=== PATIENT | male | born 1985 | race African-American/Black ===

== ENCOUNTER 2017-02-26 12:12 | Emergency (ER) | payer SELFPAY ==
[~2017-02-26] VITALS: Ht 162.6 cm; Wt 71.2 kg
[2017-02-26 12:20] VITALS: BP 146/92
--- NOTE | 2017-02-26 12:24 | PHYS DOC ---
Past Medical History Past Medical History: No Pertinent History Past Surgical History: No Surgical History Alcohol Use: None Drug Use: Marijuana Adult General Chief Complaint Chief Complaint: COUGH HPI HPI Patient is a 31 year old -[place] male who presents with productive cough and sinus pressure. He states for the last 3 weeks she's been having a dry hacking cough over the last few days has become productive. He is also been having a headache for the same amount time. He states he has a lot of pressure behind his sinus areas. He states his been feeling fevers and chills. He denies any nausea vomiting. He states he coughs so hard and he only brings up sputum kind of green material. He does smoke about a 30 pack per day. He is on that for several years. Review of Systems Review of Systems Constitutional: Denies fever or chills [] Eyes: Denies change in visual acuity, redness, or eye pain [] HENT: Denies nasal congestion or sore throat [] Respiratory: Positive for productive cough Cardiovascular: No additional information not addressed in HPI [] GI: Denies abdominal pain, nausea, vomiting, bloody stools or diarrhea [] : Denies dysuria or hematuria [] Musculoskeletal: Denies back pain or joint pain [] Integument: Denies rash or skin lesions [] Neurologic: Denies headache, focal weakness or sensory changes [] Endocrine: Denies polyuria or polydipsia [] Allergies Allergies Allergies Coded Allergies Type Severity Reaction Last Updated Verified No Known Drug Allergies 02/26/17 No Physical Exam Physical Exam Constitutional: Well developed, well nourished, no acute distress, non-toxic appearance. [] HENT: Normocephalic, atraumatic, bilateral external ears normal, oropharynx moist, no oral exudates, nose normal. Tender palpation over the maxillary and frontal sinuses Eyes: PERRLA, EOMI, conjunctiva normal, no discharge. [] Neck: Normal range of motion, no tenderness, supple, no stridor. [] Cardiovascular:Heart rate regular rhythm, no murmur [] Lungs & Thorax: Bilateral breath sounds coarse with coughing during expiration. Abdomen: Bowel sounds normal, soft, no tenderness, no masses, no pulsatile masses. [] Skin: Warm, dry, no erythema, no rash. [] Back: No tenderness, no CVA tenderness. [] Extremities: No tenderness, no cyanosis, no clubbing, ROM intact, no edema. [] Neurologic: Alert and oriented X 3, normal motor function, normal sensory function, no focal deficits noted. [] Psychologic: Affect normal, judgement normal, mood normal. [] Current Patient Data Vital Signs Vital Signs Date Time Temp Pulse Resp B/P (MAP) Pulse Ox O2 Delivery O2 Flow Rate FiO2 02/26/17 12:20 98.0 82 22 97 Room Air 98.0 EKG EKG [] Radiology/Procedures Radiology/Procedures [facility] [address] [place] [address] IMAGING REPORT Signed PATIENT: ADELE BOLTON ACCOUNT: [id number] : 1985 LOCATION: ER AGE: 31 SEX: M EXAM STATUS: REG ER ORD. PHYSICIAN: DELILAH DIEGO MD REASON: cough PROCEDURE: CHEST PA & LATERAL Indication cough. PA and lateral views of the chest were obtained. No prior imaging is available. The heart, pulmonary vessels and mediastinum appear normal. The lungs are clear. There is no pleural fluid or pneumothorax. Bony structures appear grossly intact. IMPRESSION: Normal study DICTATED and SIGNED BY: PETR KWOK MD DATE: 02/26/17 1249 CC: DELILAH DIEGO MD; NO PCP ~ [] Course & Med Decision Making Course & Med Decision Making Pertinent Labs and Imaging studies reviewed. (See chart for details) Patient refuses to have any lab work performed. I told him this would limit our evaluation however he states he's scared to and needles and doesn't want this done or an influenza swab. He does have tenderness palpation throughout his sinus area which likely is sinus infection. His been going on for several weeks and this does justify antibiotics. Since he smokes I will go and treated for bronchitis as well with prednisone for 5 days and it albuterol inhaler. He is instructed return ER for high fevers, shortness of breath or other concerns. Dragon Disclaimer Dragon Disclaimer This electronic medical record was generated, in whole or in part, using a voice recognition dictation system. Departure Departure Impression: Primary Impression: Sinusitis Disposition: 01 HOME, SELF-CARE Condition: STABLE Patient Instructions: Sinusitis Additional Instructions: Your being discharged with antibiotics for your sinus infection and bronchitis. When he take these as instructed. He also being discharged with prednisone for 5 days and an albuterol inhaler. You need to stop smoking. Return ER if you have shortness of breath, worsening headache, confusion, high fevers or other concerns. Problem Qualifiers Primary Impression: Sinusitis Chronicity: unspecified DELILAH DIEGO MD Feb 26, 2017 12:24
--- NOTE | 2017-02-26 12:53 | RAD ---
Indication cough. PA and lateral views of the chest were obtained. No prior imaging is available. The heart, pulmonary vessels and mediastinum appear normal. The lungs are clear. There is no pleural fluid or pneumothorax. Bony structures appear grossly intact. IMPRESSION: Normal study
== END 2017-02-26 13:05 | disposition home or self-care (01) ==
LOC: ER 12:12
DX: J32.9 Chronic sinusitis, unspecified (principal); J40 Bronchitis, not specified as acute or chronic; F17.200 Nicotine dependence, unspecified, uncomplicated; F12.10 Cannabis abuse, uncomplicated
CPT/HCPCS: 71020; 99284